=== PATIENT | female | born 1950 | race Two or more races ===

== ENCOUNTER 2021-01-06 09:56 | Outpatient (CLI) | payer OTHER | END 2021-01-06 10:02 | disposition home or self-care (01) | LOC: SONOGRAMA 09:56 | PROVIDERS: ATTEND Pathology Anatomic Pathology & Clinical Pathology | DX: E04.2 Nontoxic multinodular goiter (principal); D34 Benign neoplasm of thyroid gland; E04.8 Other specified nontoxic goiter ==